=== PATIENT | female | born 1940 | race Caucasian/White ===

== ENCOUNTER 2018-11-09 09:37 | Day surgery (SDC) | payer OTHER ==
[2018-11-09] VITALS (11 sets, daily range): BP systolic 112–141; BP diastolic 66–84
[~2018-11-09] VITALS: Ht 167.6 cm; Wt 86.2 kg
[~2018-11-09 09:37] MED LIST: ALBU90AE INH; ESOM40CA53 PO; FLUO-124 PO; FLUT16SP15 INH; OMEP20CA5 PO
[2018-11-09] MEDS ORDERED: SODIUM BICARBONATE 4% (2.4MEQ) 5ML VIAL IV ONE (09:44)
[2018-11-09] MEDS ORDERED: FENTANYL CITRATE/PF 50MCG/ML 2ML VIAL ONE (09:44)
[2018-11-09] MEDS ORDERED: LIDOCAINE HCL 1% 20ML VIAL (Pyxis) INJ ONE (09:45)
[2018-11-09] MEDS ORDERED: FENTANYL CITRATE/PF 50MCG/ML 2ML VIAL IV ONE (11:00)
[2018-11-09] MEDS ORDERED: DIATR MEGLU/DIATRIZOATE SOLN 120ML ONE (13:57)
== END 2018-11-09 14:30 | disposition home or self-care (01) ==
LOC: RAD 09:37
PROVIDERS: ATTEND Internal Medicine Critical Care Medicine
DX: C34.12 Malignant neoplasm of upper lobe, left bronchus or lung (principal)
CPT/HCPCS: 32405; 71045; 77012; 88305; 88312; J3010; J3490; Q9963